=== PATIENT | female | born 1995 | race Caucasian/White ===

== ENCOUNTER 2019-04-18 22:19 | Emergency (ER) | payer SELFPAY ==
[~2019-04-18] VITALS: Ht 165.1 cm; Wt 83.9 kg
--- NOTE | 2019-04-18 22:22 | NUR ---
Patient BIBA BLS accompanied by [facility], transferred to bed 3. RN evaluating patient at bedside.
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
[2019-04-18 22:28] VITALS: BP 109/72
--- NOTE | 2019-04-18 22:50 | NUR ---
PT STATED SHE WAS FEELING SHORT OF BREATH, PLACED HER ON THE SPO2 MONITOR, 100% AT ROOM AIR.
--- NOTE | 2019-04-18 23:10 | NUR ---
PT AMBULATED TO RESTROOM
--- NOTE | 2019-04-18 23:13 | NUR ---
Patient discharged with v/s stable. Written and verbal after care instructions given and explained. Patient verbalized understanding. With [facility] in custody. All questions addressed prior to discharge. Advised to follow up with PMD.
[2019-04-18 23:14] VITALS: BP 109/72
== END 2019-04-18 23:13 ==
LOC: MED 22:19
DX: M79.645 Pain in left finger(s) (principal); R06.02 Shortness of breath; Z02.89 Encounter for other administrative examinations; Z90.49 Acquired absence of other specified parts of digestive tract; Z88.5 Allergy status to narcotic agent; Z88.6 Allergy status to analgesic agent; V89.2XXA Person injured in unspecified motor-vehicle accident, traffic, initial encounter; Y93.89 Activity, other specified; Y92.89 Other specified places as the place of occurrence of the external cause; Y99.8 Other external cause status
CPT/HCPCS: 99283